=== PATIENT | male | born 1950 | race Caucasian/White ===

== ENCOUNTER 2016-05-24 06:33 | Inpatient (IN) | payer MEDICARE, OTHER ==
[2016-05-20 14:59] LABS: BASOPHILS 0.7 %; BASOPHILS ABSOLUTE 0.05 10/3/uL (0.0-0.16); EOSINOPHILS 3.7 %; EOSINOPHILS ABSOLUTE 0.27 10/3/uL (0.0-0.53); HEMATOCRIT 44.9 % (40.0-51.0); HEMOGLOBIN 15.4 g/dL (13.6-17.8); IMMATURE GRANULOCYTES 0.4 %; IMMATURE GRANULOCYTES ABSOLUTE 0.03 10/3/uL (0.0-0.11); LYMPHOCYTES 28.5 %; LYMPHOCYTES ABSOLUTE 2.09 10/3/uL (0.67-4.30); MEAN CORPUS HGB CONC 34.3 g/dL (32.0-36.0); MEAN CORPUSCULAR HEMOGLOB 29.4 pg (26.0-34.0); MEAN CORPUSCULAR VOLUME 85.7 fL (80-100); MEAN PLATELET VOLUME 10.7 fL (9.2-13.0); MONOCYTES 11.5 %; MONOCYTES ABSOLUTE 0.84 10/3/uL (0.21-1.20); NEUTROPHILS 55.2 %; NEUTROPHILS ABSOLUTE 4.05 10/3/uL (2.02-8.40); PLATELET COUNT 225 10/3/uL (150-400); RBC DISTRIBUTION WIDTH 12.8 % (12.0-16.0); RED CELL COUNT 5.24 10/6/uL (4.7-6.1); WHITE BLOOD CELLS 7.3 10/3/uL (4.5-10.5)
[2016-05-20 15:04] LABS: MANUAL DIFF NO %
[2016-05-20 15:07] LABS: INTERNATIONAL NORMAL RATI 1.2 UNITS (-); PARTIAL THROMBO TIME 26.3 SEC (22.5-37.2); PROTIME (NOT ORD) 15.4 SEC (12.0-14.5)
[2016-05-20 15:32] LABS: BUN (BLOOD UREA NITROGEN) 14 MG/DL (6-23); CHLORIDE, SERUM 108 MMOL/L (96-112); CO2 (CARBON DIOXIDE) 29 MMOL/L (24-34); CREATININE 1.14 MG/DL (0.70-1.30); GFR AFRICAN AMERICAN 78 ML/MIN (>=60); GFR NON AFRICAN AMERICAN 67 ML/MIN (>=60); GLUCOSE, SERUM 79 MG/DL (60-99); POTASSIUM, SERUM 4.1 MMOL/L (3.5-5.3); SODIUM, SERUM 143 MMOL/L (135-148)
[2016-05-21 13:28] LABS: ALKALINE PHOSPHATASE 66 U/L (45-117); SGOT(AST) 25 U/L (5-40); SGPT(ALT) 50 U/L (5-65); TOTAL BILIRUBIN 1.1 MG/DL (0-1.2)
[2016-05-21 13:39] LABS: TOTAL PROTEIN 7.2 G/DL (6.0-8.5)
[2016-05-21 13:47] LABS: A/G RATIO 1.3 (0.7-1.9); GLOBULIN 3.2 G/DL (2.5-4.1)
--- NOTE | ~2016-05-24 | PREOPHP ---
PreOp History and Physical [address] [place]. [address] NAME: RADHA ROONEY SR : 50 STATUS : PRE IN PAT#: [id number] AGE: 65 ADM/REG DATE : MR#: [id number] REPORT SERV DATE: 05/24/16 DICTATED BY: JESUS PATEL III DATE: 05/20/16 REPORT STATUS : Draft TRANSCRIBED BY: MODL DATE: 05/20/16 HISTORY OF PRESENT ILLNESS: This 65-year-old male comes to the operating room for laparoscopic right colectomy, possible laparotomy, for a large 5 cm to 6 cm mass in the right colon. The patient has a history of vague abdominal pain and bloating for several months. He had a colonoscopy and was found have a large 6 cm mass in the cecum. Biopsy shows this to be a tubulovillous adenoma. The patient comes now for laparoscopic right colectomy, possible laparotomy. PAST MEDICAL HISTORY: Gastroesophageal reflux disease. PAST SURGICAL HISTORY: Includes hemorrhoidectomy. MEDICATIONS: Pantoprazole and Ultram. FAMILY HISTORY: Positive for diabetes and heart disease. SOCIAL HISTORY: The patient has a history of tobacco abuse and alcohol use. ALLERGIES: NONE. REVIEW OF SYSTEMS: The patient complains of fatigue and back pain. His 14-point review of systems is otherwise unremarkable. PHYSICAL EXAMINATION: GENERAL: Reveals a very obese male, in no acute distress. He is alert and oriented x3. VITAL SIGNS: Blood pressure 126/86, pulse 65, temperature 98.5. HEENT: Unremarkable. NEURO: Cranial nerves 2 through 12 were normal. LUNGS: Clear. CARDIAC: Normal. ABDOMEN: Soft and nontender. No masses. EXTREMITIES: Normal. LABORATORY DATA: Colonoscopy shows a 6 cm mass in the cecum. Biopsy shows this to be a tubulovillous adenoma without high-grade dysplasia. The mass is 6 x 4 cm in size. It is in the cecum near the ileocecal valve. ASSESSMENT: 1. A 65-year-old male with large right colon mass, tubulovillous adenoma by biopsy, possible malignancy. 2. Obesity. 3. Tobacco abuse with probable underlying chronic lung disease. PLAN: The patient comes to the operating room now for laparoscopic right colectomy, possible PreOp History and Physical [address] [address] NAME: RADHA ROONEY SR : 50 STATUS : PRE IN PAT#: [id number] AGE: 65 ADM/REG DATE : MR#: [id number] REPORT SERV DATE: 05/24/16 DICTATED BY: JESUS PATEL III DATE: 05/20/16 REPORT STATUS : Draft TRANSCRIBED BY: NICHOLAS DATE: 05/20/16 laparotomy. This procedure, the risks, benefits, and alternatives, including not limited to the risk for bleeding, infection, enterotomy, injury to abdominal structure, postop small bowel obstruction, ileus, incisional hernia, dehiscence, anastomotic leak, requiring reoperation with ileostomy, ureteral injury, possible need for laparotomy, prolonged ventilator dependency, and unforeseen complications including deep venous thrombosis, pulmonary embolus, myocardial infarction, stroke, pneumonia, and , have been fully explained to the patient's family at length prior to surgery. The fact that this is a major operation with risk for major morbidity and mortality has been explained as well as expected length of recovery with open laparoscopic procedures. The option of nonoperative management has been discussed with the patient but declined. The patient's questions have been answered. He clearly understands the risks and clearly agrees to surgery as planned. MILTON/NICHOLAS Jesus Patel III, M.D. / [id number]
--- NOTE | ~2016-05-24 | OP ---
Record Of Operation [facility] [address] [place]. [address] NAME: RADHA ROONEY : 50 STATUS : ADM IN PAT#: [id number] AGE: 65 ADM/REG DATE : 05/24/16 MR#: [id number] REPORT SERV DATE: 05/24/16 DICTATED BY: JESUS PATEL III DATE: 05/24/16 REPORT STATUS : Draft TRANSCRIBED BY: MODL DATE: 05/24/16 DATE OF PROCEDURE: 05/24/2016 PREOPERATIVE DIAGNOSIS: Large neoplasm of the cecum, adenoma on biopsy, suspected to be malignant based on the size of the lesion. POSTOPERATIVE DIAGNOSIS: Large neoplasm of the cecum, adenoma on biopsy, suspected to be malignant based on the size of the lesion, probable cancer of the cecum. PROCEDURE: Laparoscopic resection of terminal ileum, right colon with primary ileocolonic anastomosis. SURGEON: Jesus Patel M.D. ANESTHESIA: General with intubation. COMPLICATIONS: None. ESTIMATED BLOOD LOSS: 50 mL. SPECIMENS: Terminal ileum and proximal right colon. DRAINS: [place] in subcutaneous tissue. LAP AND SPONGE COUNT: Correct x3. BRIEF HISTORY: This 65-year-old male presented with a large, 6 cm mass located in the cecum. Biopsy showed this to be an adenoma but based on the large size of the tumor, it was suspected that this might represent a primary malignancy. It was felt that laparoscopic right colectomy, possible laparotomy, was indicated. This procedure, the risks, benefits, and alternatives, including not limited to the risk for bleeding, infection, enterotomy, injury to abdominal structure, postop small bowel obstruction, ileus, incisional hernia, dehiscence, ureteral injury, anastomotic leak requiring reoperation with ileostomy, possible need for laparotomy, and unforeseen complications including deep venous thrombosis, pulmonary embolus, myocardial infarction, stroke, pneumonia, and , were fully and completely to the patient and his family prior to surgery. The expected length of recovery with both open and laparoscopic procedures was explained. The fact that this was a major operation with risk for major morbidity and mortality was explained. The patient and family had questions which were answered. They fully understood the risks and agreed to surgery as planned. FINDINGS: The patient had a large mass in the cecum, suspicious clinically for malignancy. There is no evidence for carcinomatosis or metastatic disease. DESCRIPTION OF PROCEDURE: After being properly identified and after discussing the risks of surgery with the patient and his family again in the preoperative area and after appropriate Record Of Operation [address] [address] NAME: RADHA ROONEY : 50 STATUS : ADM IN PAT#: [id number] AGE: 65 ADM/REG DATE : 05/24/16 MR#: [id number] REPORT SERV DATE: 05/24/16 DICTATED BY: JESUS PATEL III DATE: 05/24/16 REPORT STATUS : Draft TRANSCRIBED BY: NICHOLAS DATE: 05/24/16 bowel preparation at home, the patient was taken to the operating room and placed in the supine position on the operating room table. General anesthesia was administered and he was intubated without difficulty. A Angulo catheter was inserted. The abdomen was prepped and draped sterilely in the usual fashion. After an appropriate "time-out" per [employer] standards, a small transverse incision was made just below the umbilicus. The skin and fascia on either side of this were elevated with towel clips. A Veress needle was placed through the incision into the peritoneal cavity. Correct position of the needle in the peritoneal cavity was confirmed by the hanging drop test. The abdominal cavity was then insufflated to about 13 mmHg with carbon dioxide. Correct position of air in the peritoneal cavity was confirmed by palpation. The Veress needle was removed and replaced with a 10 mm trocar. The laparoscope was placed through this. The abdomen was inspected. There was no evidence for carcinomatosis or peritoneal implants. A 5 mm trocar was then placed in the midline, midway between the umbilicus and xiphoid process, under direct vision with the laparoscope. Another 5 mm trocar was placed in the midline, just above the pubis, also under direct vision with the laparoscope. Another 5 mm trocar was placed in the right upper quadrant, also under direct vision with the laparoscope. The patient was rotated slightly to his left. The right colon was identified and grasped and retracted medially. Using sharp dissection, the peritoneal reflection to the right colon was divided along the line of Toldt, from the cecum to the hepatic flexure. After full and adequate mobilization of the right colon, we made a small vertical incision along the right lateral abdominal wall, over the mid right colon. The incision was continued through the subcutaneous tissue. Hemostasis was controlled with cautery. The incision was continued through the fascia. The abdominal cavity was entered. The right colon was mobilized into the wound. There was a palpable mass within the colon. We selected a point for division of the terminal ileum proximal to the ileocecal valve. A window was made in the mesentery of the ileum at this point. A SHERRY stapler was used about the ileum at this point. We then selected a point for division of the right colon, in the mid right colon, distal to the tumor. A window was made in the mesentery to the colon at this point. A SHERRY stapler used about the colon at this point. The mesentery to this portion of the terminal ileum and right colon was then divided along its base, using Harmonic scalpel. This was done along the base of the mesentery so as to perform correct oncologic dissection of the lymphovascular supply to the colon. The right colon was thus removed and sent to pathology. It was interpreted as containing a large tumor with clear margins. We then performed a primary anastomosis between the divided terminal ileum and distal right colon. This was performed in a guyg-up-kunj fashion. The antimesenteric border of the small bowel was aligned with the antimesenteric border of the colon with interrupted 3-0 silk sutures. A small opening was then made in the antimesenteric border of the small bowel and the corresponding antimesenteric border of the colon. A SHERRY stapler was placed through this and fired. The defect created by the stapler was then closed with a TA-60 stapler. This staple line was oversewn with interrupted 3-0 silk sutures. The "crotch" anastomosis was secured with 3-0 silk sutures. Upon completion of this, the anastomosis was widely patent to palpation. It was not twisted or kinked in any way. It was not under any tension. It was reduced back in to the abdominal cavity. Record Of Operation [facility] [address] [facility] [address] [place]. [address] NAME: RADHA ROONEY : 50 STATUS : ADM IN [facility]#: [id number] AGE: 65 ADM/REG DATE : 05/24/16 MR#: [id number] REPORT SERV DATE: 05/24/16 DICTATED BY: JESUS PATEL III DATE: 05/24/16 REPORT STATUS : Draft TRANSCRIBED BY: NICHOLAS DATE: 05/24/16 The area was irrigated copiously with saline. Hemostasis was assured. The trocars were removed. The fascia of the lateral incision was closed with a running looped #1 PDS suture. The subcutaneous tissue was closed with running 3-0 chromic suture. The fascia of the infraumbilical incision was closed with 0 Vicryl suture. All skin incisions were closed with running subcuticular 4-0 Monocryl stitches. They were injected with 0.5% Marcaine. Dressings were applied. Anesthesia was reversed. The patient was taken to the recovery room in stable condition. He tolerated the procedure well. His family was informed of the results of surgery. The patient will remain in the hospital for postoperative care. RHJ/NICHOLAS Jesus Patel III, M.D. / [id number] CC: Tristian Chan III, M.D.
--- NOTE | ~2016-05-24 | DS ---
Discharge Summary [facility] [address] [place]. [address] NAME: RADHA ROONEY : 50 STATUS : DIS IN PAT#: [id number] AGE: 65 ADM/REG DATE : 05/24/16 MR#: [id number] REPORT SERV DATE: 06/11/16 DICTATED BY: JESUS PATEL III DATE: 06/10/16 REPORT STATUS : Draft TRANSCRIBED BY: MODL DATE: 06/10/16 Data Collection from hospitalization The patient was admitted on 05/24/2016, and discharged on 06/01/2016. DISCHARGE DIAGNOSES: 1. Large neoplasm of the cecum-adenoma on biopsy-suspected to be malignant based on the size of the lesion-probable cancer of the cecum. 2. Gastroesophageal reflux disease. 3. Migraines. 4. Arthritis. CONSULTATIONS: None. PROCEDURES: 1. Laparoscopic resection of terminal ileum, right colon with primary ileocolonic anastomosis, 05/24/2016. 2. CTA of the chest, 06/01/2016. PATHOLOGY: Right ascending colon, cecum, terminal ileum, and appendix. Right hemicolectomy- tubulovillous adenoma (3.4 cm) with high-grade dysplasia. Separate tubular adenoma (1.0 cm). Submucosal lipoma appendix, no histopathologic abnormality, 13 benign lymph nodes. Terminal ileum segmental resection-benign enteric mucosa with reactive lymphoid hyperplasia. Negative for adenomatous changes or carcinoma. DISCHARGE MEDICATIONS: Tylenol 500 mg every six hours as needed; Zofran 4 mg every 8 hours as needed; Percocet 7.5/325 one tablet every eight hours as needed; Protonix 40 mg at bedtime; and Ultram 50 mg every six hours as needed. CONDITION ON DISCHARGE: Stable. DISPOSITION: The patient was discharged home on a soft, low-fat low residue diet with activities as instructed. He would follow up with me, 06/15/2016. HOSPITAL COURSE: This is a 65-year-old man who presented with a large 6 cm mass located in the cecum. Biopsy revealed this to be an adenoma, but based on the large size of the tumor, it was suspected that this may represent a primary malignancy. Treatment options were discussed and it was elected to proceed with surgical intervention. He was admitted to the hospital at this time for further evaluation and treatment. Upon admission, he was taken to the operating room where he underwent the above-mentioned procedure. He tolerated this well and there were no complications. On postop day #1, he had no new complaints. He was alert and comfortable. He was afebrile. Angulo catheter was removed. Clear liquids were started. On postop day #2, he did complain of some nausea and abdominal distention. He had not passed any gas per rectum. He remained afebrile. NG tube was placed. He was being held n.p.o. Reglan was given. We encouraged him to ambulate. He was evaluated by Physical Therapy. On 05/27/2016, he said he was feeling better. He was passing some gas per rectum. Dulcolax was given. The next day, he still had some abdominal Discharge Summary [address] [address] NAME: RADHA ROONEY : 50 STATUS : DIS IN PAT#: [id number] AGE: 65 ADM/REG DATE : 05/24/16 MR#: [id number] REPORT SERV DATE: 06/11/16 DICTATED BY: JESUS PATEL III DATE: 06/10/16 REPORT STATUS : Draft TRANSCRIBED BY: NICHOLAS DATE: 06/10/16 distention. He was passing flatus. His lungs were clear. Pathology results had revealed benign high-grade dysplasia. He was felt to have a postoperative ileus. On 05/29/2016, his abdominal distention had decreased. He did have a bowel movement and was passing flatus. The NG tube was removed. Limited oral intake was started. The ileus was felt to be resolving. On 05/30/2016, he was tolerating liquids. His abdominal distention continued to decrease. His incisions looked okay. The ileus continued to resolve. His diet was advanced. The next day, the [employer] was discontinued. We encouraged him to increase his activity. His incisions looked okay. The ileus had resolved. Discharge planning was performed. On 06/01/2016, CTA of the chest was performed. He had no pulmonary emboli. He complained of some pain in the left posterior chest that was worse with deep breathing. The patient was eating well. He was able to ambulate. He was passing gas. Discharge instructions were given. Due to his improved and stable condition, he was discharged home with the above-stated instructions. Information collected by: Kaelyn Owens I submit the above information as my discharge summary. TG/MODL Jesus Patel III, M.D. / [id number] CC: Tristian Chan III, M.D.
[~2016-05-24 06:33] MED LIST: ACET500CAP PO; PROTONIX PO; ULTRAM50 PO
[2016-05-25 05:09] LABS: BASOPHILS 0.1 %; BASOPHILS ABSOLUTE 0.01 10/3/uL (0.0-0.16); EOSINOPHILS 0 %; HEMOGLOBIN 13.5 g/dL (13.6-17.8); IMMATURE GRANULOCYTES 0.2 %; IMMATURE GRANULOCYTES ABSOLUTE 0.02 10/3/uL (0.0-0.11); LYMPHOCYTES 12.2 %; LYMPHOCYTES ABSOLUTE 1.14 10/3/uL (0.67-4.30); MEAN CORPUS HGB CONC 33.7 g/dL (32.0-36.0); MEAN CORPUSCULAR HEMOGLOB 28.8 pg (26.0-34.0); MEAN CORPUSCULAR VOLUME 85.7 fL (80-100); MEAN PLATELET VOLUME 10.5 fL (9.2-13.0); MONOCYTES 11.7 %; NEUTROPHILS 75.8 %; PLATELET COUNT 208 10/3/uL (150-400); RBC DISTRIBUTION WIDTH 12.8 % (12.0-16.0); RED CELL COUNT 4.68 10/6/uL (4.7-6.1); WHITE BLOOD CELLS 9.4 10/3/uL (4.5-10.5)
[2016-05-25 05:12] LABS: HEMATOCRIT 40.1 % (40.0-51.0); MANUAL DIFF NO %
[2016-05-25 05:20] LABS: CALCIUM, SERUM 8.8 MG/DL (8.5-10.4); CHLORIDE, SERUM 107 MMOL/L (96-112); CREATININE 1.14 MG/DL (0.70-1.30); GFR AFRICAN AMERICAN 78 ML/MIN (>=60); GFR NON AFRICAN AMERICAN 67 ML/MIN (>=60); POTASSIUM, SERUM 4.2 MMOL/L (3.5-5.3); SODIUM, SERUM 139 MMOL/L (135-148)
[2016-05-25 05:30] LABS: BUN (BLOOD UREA NITROGEN) 10 MG/DL (6-23); CO2 (CARBON DIOXIDE) 23 MMOL/L (24-34); GLUCOSE, SERUM 155 MG/DL (60-99)
[2016-05-26 05:35] LABS: BASOPHILS 0.3 %; BASOPHILS ABSOLUTE 0.03 10/3/uL (0.0-0.16); EOSINOPHILS 0.2 %; EOSINOPHILS ABSOLUTE 0.02 10/3/uL (0.0-0.53); HEMATOCRIT 40.5 % (40.0-51.0); HEMOGLOBIN 13.6 g/dL (13.6-17.8); IMMATURE GRANULOCYTES 0.2 %; IMMATURE GRANULOCYTES ABSOLUTE 0.02 10/3/uL (0.0-0.11); LYMPHOCYTES 22.8 %; LYMPHOCYTES ABSOLUTE 2.01 10/3/uL (0.67-4.30); MEAN CORPUS HGB CONC 33.6 g/dL (32.0-36.0); MEAN CORPUSCULAR HEMOGLOB 28.9 pg (26.0-34.0); MEAN CORPUSCULAR VOLUME 86.2 fL (80-100); MEAN PLATELET VOLUME 10.4 fL (9.2-13.0); MONOCYTES 16.6 %; MONOCYTES ABSOLUTE 1.47 10/3/uL (0.21-1.20); NEUTROPHILS 59.9 %; NEUTROPHILS ABSOLUTE 5.28 10/3/uL (2.02-8.40); PLATELET COUNT 174 10/3/uL (150-400); RBC DISTRIBUTION WIDTH 13.2 % (12.0-16.0); WHITE BLOOD CELLS 8.8 10/3/uL (4.5-10.5)
[2016-05-26 05:38] LABS: MANUAL DIFF NO %
[2016-05-26 05:50] LABS: BUN (BLOOD UREA NITROGEN) 9 MG/DL (6-23); CALCIUM, SERUM 8.8 MG/DL (8.5-10.4); CHLORIDE, SERUM 105 MMOL/L (96-112); CO2 (CARBON DIOXIDE) 26 MMOL/L (24-34); CREATININE 1.02 MG/DL (0.70-1.30); GFR AFRICAN AMERICAN 89 ML/MIN (>=60); GFR NON AFRICAN AMERICAN 77 ML/MIN (>=60); GLUCOSE, SERUM 105 MG/DL (60-99); SODIUM, SERUM 137 MMOL/L (135-148)
[2016-05-27 04:54] LABS: BASOPHILS 0.1 %; BASOPHILS ABSOLUTE 0.01 10/3/uL (0.0-0.16); EOSINOPHILS 0.5 %; EOSINOPHILS ABSOLUTE 0.05 10/3/uL (0.0-0.53); HEMATOCRIT 41.1 % (40.0-51.0); HEMOGLOBIN 14.2 g/dL (13.6-17.8); IMMATURE GRANULOCYTES 0.4 %; IMMATURE GRANULOCYTES ABSOLUTE 0.04 10/3/uL (0.0-0.11); LYMPHOCYTES 11.3 %; LYMPHOCYTES ABSOLUTE 1.11 10/3/uL (0.67-4.30); MEAN CORPUS HGB CONC 34.5 g/dL (32.0-36.0); MEAN CORPUSCULAR HEMOGLOB 29.4 pg (26.0-34.0); MEAN CORPUSCULAR VOLUME 85.1 fL (80-100); MEAN PLATELET VOLUME 10.9 fL (9.2-13.0); MONOCYTES 18.3 %; MONOCYTES ABSOLUTE 1.79 10/3/uL (0.21-1.20); NEUTROPHILS 69.4 %; NEUTROPHILS ABSOLUTE 6.79 10/3/uL (2.02-8.40); PLATELET COUNT 179 10/3/uL (150-400); RBC DISTRIBUTION WIDTH 12.8 % (12.0-16.0); RED CELL COUNT 4.83 10/6/uL (4.7-6.1); WHITE BLOOD CELLS 9.8 10/3/uL (4.5-10.5)
[2016-05-27 04:56] LABS: MANUAL DIFF NO %
[2016-05-27 05:13] LABS: BUN (BLOOD UREA NITROGEN) 11 MG/DL (6-23); CALCIUM, SERUM 8.9 MG/DL (8.5-10.4); CHLORIDE, SERUM 101 MMOL/L (96-112); CO2 (CARBON DIOXIDE) 26 MMOL/L (24-34); GFR AFRICAN AMERICAN 104 ML/MIN (>=60); GFR NON AFRICAN AMERICAN 89 ML/MIN (>=60); GLUCOSE, SERUM 132 MG/DL (60-99); POTASSIUM, SERUM 4.2 MMOL/L (3.5-5.3); SODIUM, SERUM 137 MMOL/L (135-148)
[2016-05-28 06:54] LABS: BASOPHILS 0.4 %; BASOPHILS ABSOLUTE 0.03 10/3/uL (0.0-0.16); EOSINOPHILS 1.1 %; EOSINOPHILS ABSOLUTE 0.08 10/3/uL (0.0-0.53); HEMOGLOBIN 12.7 g/dL (13.6-17.8); IMMATURE GRANULOCYTES 0.3 %; IMMATURE GRANULOCYTES ABSOLUTE 0.02 10/3/uL (0.0-0.11); LYMPHOCYTES ABSOLUTE 1.36 10/3/uL (0.67-4.30); MEAN CORPUS HGB CONC 34.9 g/dL (32.0-36.0); MEAN CORPUSCULAR HEMOGLOB 29.2 pg (26.0-34.0); MEAN CORPUSCULAR VOLUME 83.7 fL (80-100); MEAN PLATELET VOLUME 10.5 fL (9.2-13.0); MONOCYTES 18.3 %; MONOCYTES ABSOLUTE 1.38 10/3/uL (0.21-1.20); NEUTROPHILS 61.9 %; NEUTROPHILS ABSOLUTE 4.69 10/3/uL (2.02-8.40); PLATELET COUNT 160 10/3/uL (150-400); RED CELL COUNT 4.35 10/6/uL (4.7-6.1); WHITE BLOOD CELLS 7.6 10/3/uL (4.5-10.5)
[2016-05-28 06:55] LABS: HEMATOCRIT 36.4 % (40.0-51.0); MANUAL DIFF NO %
[2016-05-28 07:04] LABS: BUN (BLOOD UREA NITROGEN) 10 MG/DL (6-23); CALCIUM, SERUM 8.8 MG/DL (8.5-10.4); CHLORIDE, SERUM 100 MMOL/L (96-112); CO2 (CARBON DIOXIDE) 26 MMOL/L (24-34); GFR AFRICAN AMERICAN 104 ML/MIN (>=60); GFR NON AFRICAN AMERICAN 89 ML/MIN (>=60); GLUCOSE, SERUM 117 MG/DL (60-99); POTASSIUM, SERUM 3.9 MMOL/L (3.5-5.3); SODIUM, SERUM 134 MMOL/L (135-148)
[2016-05-29 05:21] LABS: BUN (BLOOD UREA NITROGEN) 10 MG/DL (6-23); CALCIUM, SERUM 8.8 MG/DL (8.5-10.4); CHLORIDE, SERUM 102 MMOL/L (96-112); CO2 (CARBON DIOXIDE) 25 MMOL/L (24-34); CREATININE 0.83 MG/DL (0.70-1.30); GFR AFRICAN AMERICAN 107 ML/MIN (>=60); GFR NON AFRICAN AMERICAN 92 ML/MIN (>=60); GLUCOSE, SERUM 108 MG/DL (60-99); POTASSIUM, SERUM 4.2 MMOL/L (3.5-5.3); SODIUM, SERUM 138 MMOL/L (135-148)
[2016-05-30 05:59] LABS: BUN (BLOOD UREA NITROGEN) 11 MG/DL (6-23); CALCIUM, SERUM 8.7 MG/DL (8.5-10.4); CHLORIDE, SERUM 104 MMOL/L (96-112); CO2 (CARBON DIOXIDE) 24 MMOL/L (24-34); CREATININE 0.87 MG/DL (0.70-1.30); GFR AFRICAN AMERICAN 105 ML/MIN (>=60); GFR NON AFRICAN AMERICAN 91 ML/MIN (>=60); GLUCOSE, SERUM 105 MG/DL (60-99); SODIUM, SERUM 137 MMOL/L (135-148)
[2016-05-30 06:29] LABS: BASOPHILS 0.4 %; BASOPHILS ABSOLUTE 0.02 10/3/uL (0.0-0.16); EOSINOPHILS 2.2 %; EOSINOPHILS ABSOLUTE 0.12 10/3/uL (0.0-0.53); HEMATOCRIT 36.9 % (40.0-51.0); HEMOGLOBIN 12.6 g/dL (13.6-17.8); IMMATURE GRANULOCYTES 0.7 %; IMMATURE GRANULOCYTES ABSOLUTE 0.04 10/3/uL (0.0-0.11); LYMPHOCYTES 19.1 %; LYMPHOCYTES ABSOLUTE 1.06 10/3/uL (0.67-4.30); MEAN CORPUS HGB CONC 34.1 g/dL (32.0-36.0); MEAN CORPUSCULAR HEMOGLOB 29.2 pg (26.0-34.0); MEAN CORPUSCULAR VOLUME 85.4 fL (80-100); MEAN PLATELET VOLUME 10.4 fL (9.2-13.0); MONOCYTES 17.3 %; MONOCYTES ABSOLUTE 0.96 10/3/uL (0.21-1.20); NEUTROPHILS 60.3 %; NEUTROPHILS ABSOLUTE 3.36 10/3/uL (2.02-8.40); PLATELET COUNT 167 10/3/uL (150-400); RBC DISTRIBUTION WIDTH 12.6 % (12.0-16.0); RED CELL COUNT 4.32 10/6/uL (4.7-6.1); WHITE BLOOD CELLS 5.6 10/3/uL (4.5-10.5)
[2016-05-30 06:30] LABS: MANUAL DIFF NO %
[2016-06-01 06:38] LABS: BASOPHILS 0.1 %; BASOPHILS ABSOLUTE 0.01 10/3/uL (0.0-0.16); EOSINOPHILS 2.1 %; EOSINOPHILS ABSOLUTE 0.15 10/3/uL (0.0-0.53); HEMATOCRIT 38.7 % (40.0-51.0); HEMOGLOBIN 13.3 g/dL (13.6-17.8); IMMATURE GRANULOCYTES 0.9 %; IMMATURE GRANULOCYTES ABSOLUTE 0.06 10/3/uL (0.0-0.11); LYMPHOCYTES 17.7 %; LYMPHOCYTES ABSOLUTE 1.24 10/3/uL (0.67-4.30); MANUAL DIFF NO %; MEAN CORPUS HGB CONC 34.4 g/dL (32.0-36.0); MEAN CORPUSCULAR HEMOGLOB 29.3 pg (26.0-34.0); MEAN CORPUSCULAR VOLUME 85.2 fL (80-100); MEAN PLATELET VOLUME 10.7 fL (9.2-13.0); MONOCYTES 15.7 %; NEUTROPHILS 63.5 %; NEUTROPHILS ABSOLUTE 4.46 10/3/uL (2.02-8.40); PLATELET COUNT 212 10/3/uL (150-400); RBC DISTRIBUTION WIDTH 12.6 % (12.0-16.0); RED CELL COUNT 4.54 10/6/uL (4.7-6.1)
[2016-06-01 06:45] LABS: CALCIUM, SERUM 8.8 MG/DL (8.5-10.4); CHLORIDE, SERUM 99 MMOL/L (96-112); CO2 (CARBON DIOXIDE) 25 MMOL/L (24-34); CREATININE 0.87 MG/DL (0.70-1.30); GFR AFRICAN AMERICAN 105 ML/MIN (>=60); GFR NON AFRICAN AMERICAN 91 ML/MIN (>=60); POTASSIUM, SERUM 3.8 MMOL/L (3.5-5.3); SODIUM, SERUM 135 MMOL/L (135-148)
[2016-06-01 06:46] LABS: BUN (BLOOD UREA NITROGEN) 16 MG/DL (6-23); GLUCOSE, SERUM 132 MG/DL (60-99)
[2016-06-01] MEDS ORDERED: ZOFRAN4 PO (09:56)
[2016-06-01] MEDS ORDERED: PERCOCET 7.5/321 TAB PO (09:56)
== END 2016-06-01 12:12 | disposition home or self-care (01) | DRG 330 ==
LOC: SDC/OF 06:33 → PACU 11:57 → 5SO 15:14
PROVIDERS: Surgery
PROC: 3E0T3CZ (ICD-10-PCS; 2016-05-24)
PROC: 0DBK4ZZ Excision of Ascending Colon, Percutaneous Endoscopic Approach (ICD-10-PCS; principal; 2016-05-24 08:45)
DX: D12.0 Benign neoplasm of cecum (principal); K56.7 Ileus, unspecified; J44.9 Chronic obstructive pulmonary disease, unspecified; E66.9 Obesity, unspecified; K21.9 Gastro-esophageal reflux disease without esophagitis; Z98.890 Other specified postprocedural states; Z79.899 Other long term (current) drug therapy; Z83.3 Family history of diabetes mellitus; Z82.49 Family history of ischemic heart disease and other diseases of the circulatory system; F17.210 Nicotine dependence, cigarettes, uncomplicated; Z68.31 Body mass index [BMI] 31.0-31.9, adult; G43.909 Migraine, unspecified, not intractable, without status migrainosus; M19.90 Unspecified osteoarthritis, unspecified site
CPT/HCPCS: 36415; 71020; 71275; 74000; 74020; 80048; 80053; 83690; 85025; 85610; 85730; 86850; 86870; 86900; 86901; 86905; 86920; 86922; 88307; 88309; 93005; 97116-GP; 97162-GP; A9270-GY; C9113; G8978-CK-GP; G8979-CI-GP; J0690; J1170; J1200; J2175; J2250; J2405; J2550; J2710; J2765; J2795; J3010; Q9967